=== PATIENT | male | born 1945 | race Hispanic/Latino ===

== ENCOUNTER → 2021-11-03 | Outpatient (CLI) | payer OTHER ==
[2021-11-03 08:24] LABS: INR 0.94 (0.85-1.15); PROTHROMBIN TIME 10.3 SEC (9.6-11.6)
[2021-11-03 08:25] LABS: PARTIAL THROMBOPLASTIN TIME 26.5 SEC (26.3-35.5)
== END | disposition home or self-care (01) ==
LOC: RAH 07:41
PROVIDERS: ATTEND Physician Assistant
DX: D11.0 Benign neoplasm of parotid gland (principal); K21.9 Gastro-esophageal reflux disease without esophagitis; E78.5 Hyperlipidemia, unspecified; M15.0 Primary generalized (osteo)arthritis; E11.42 Type 2 diabetes mellitus with diabetic polyneuropathy; Z86.010 Personal history of colon polyps; Z79.01 Long term (current) use of anticoagulants
CPT/HCPCS: 42400; 85610; 85730; 36415; 76942; C1887; 38505; 88305

== ENCOUNTER 2025-02-17 06:25 | Day surgery (SDC) | payer OTHER ==
[2025-02-14 08:29] LABS: IMMATURE GRANULOCYTE ABSOLUTE 0.02 K/uL (0-1); NUCLEATED RED BLOOD CELLS 0.0 % (0.0-0.19); PLATELET COUNT (AUTO) 143 K/uL (130-400); RED BLOOD CELL COUNT(AUTO) 4.70 MIL/uL (4.50-6.20); RED CELL DISTRIBUTION WIDTH 13.5 % (11.0-15.5); WHITE BLOOD COUNT (AUTO) 6.2 K/uL (4.8-10.8)
[2025-02-14 08:40] LABS: INR 1.05 (0.85-1.15)
[2025-02-14 08:43] LABS: CREATININE 1.0 mg/dL (0.5-1.3); GLOMERULAR FILTR. RATE CALC 77.0 mL/min (>90); GLUCOSE,RANDOM 97.0 mg/dL (70-105); SODIUM SERUM 141.0 mmol/L (136-145); UREA NITROGEN, BLOOD 15.0 mg/dL (7-18)
[2025-02-14 08:48] VITALS: BP 130/65; PULSE 49; RESP 14; TEMP 97.2
--- NOTE | 2025-02-14 09:10 | EKG ---
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
--- NOTE | 2025-02-14 10:19 | NUR ---
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 ok to proceed
[2025-02-17] VITALS (16 sets, daily range): BP systolic 119–154; BP diastolic 65–75; PULSE 57–78; RESP 14–18; TEMP 97.1–97.6
[~2025-02-17] VITALS: Ht 162.6 cm; Wt 88.3 kg
[~2025-02-17 06:25] MED LIST: ATOR40TA71 PO; BUSP10TA3 PO; FINA5TAB41 PO; GABA300C PO; OMEP40CA21 PO; TAMS-55 PO
[2025-02-17] MEDS ORDERED: SUGAMMADEX SODIUM 200 MG/2 ML VIAL IV ONE (07:08)
[2025-02-17] MEDS ORDERED: LIDOCAINE PF 100MG/5ML (2%) SYRINGE 5ML ONE (07:20)
[2025-02-17] MEDS ORDERED: MIDAZOLAM HCL 1 MG/ML 2ML VIAL ONE (07:21)
[2025-02-17] MEDS: LACTATED RINGERS 1000ML 1,000 ML IV ONE (08:16)
[2025-02-17] MEDS ORDERED: GLYCOPYRROLATE 0.2 MG/ML 5 ML VIAL ONE (08:46)
--- NOTE | 2025-02-17 09:26 | OP ---
Operative Note: DATE OF PROCEDURE: 02/17/25 SURGEON: MICHAEL BRYAN MD TISSUE COORDINATOR: [] ANESTHESIA: [] General ANESTHESIOLOGIST/SUPERVISOR CORE DRILLING: [] PREOPERATIVE DIAGNOSIS: [] Umbilical hernia POSTOPERATIVE DIAGNOSIS: [] The same SYNOPSIS: [] PROCEDURE: [] Open umbilical hernia repair ESTIMATED BLOOD LOSS: [] Minimal INDICATIONS: [] DESCRIPTION OF PROCEDURE: [] With the patient prepped and draped with a an infraumbilical incision using indirect technique I was able to identify an incarcerated umbilical hernia. I cleaned the area of the fashion I removed the hernia sac with the content. After cleaning the defect it was a 2 cm defect and I decided to repair with the primary repair no mesh. Using a 2-0 Prolene sutures I did interrupted sutures. After this was done I reimplanted the umbilicus to the fascia with a 2-0 Vicryl. 3-0 Vicryl were used for subcutaneous tissue and 4-0 Monocryl and Dermabond were placed with the skin. We injected 20 cc of local anesthesia. MICHAEL BRYAN MD Feb 17, 2025 09:26
--- NOTE | 2025-02-17 10:55 | NUR ---
Full and complete discharge instructions given to Patient and Family both verbally and in writing. Explained Surgical procedure precautions and follow up. Umbilical hernia incision sites clean dry and intact. Abdominal binder in place. No evidence of bleeding, bruising or hematoma. All questions answered. PIV removed with catheter tip intact. Family at bedside appearing supportive. W/C to POV with Family to home
== END 2025-02-17 11:09 | disposition home or self-care (01) ==
LOC: DAH 06:25
PROVIDERS: ATTEND Surgery
DX: K42.9 Umbilical hernia without obstruction or gangrene (principal); F41.9 Anxiety disorder, unspecified; E78.5 Hyperlipidemia, unspecified; G47.30 Sleep apnea, unspecified; E11.9 Type 2 diabetes mellitus without complications; Z79.01 Long term (current) use of anticoagulants; Z82.49 Family history of ischemic heart disease and other diseases of the circulatory system; Z79.899 Other long term (current) drug therapy; Z98.890 Other specified postprocedural states
CPT/HCPCS: 80048; 85025; 85610; 85730; 36415; 93005; 49592; 82948; 88302; J1100; A4223 ×2; A6260; A4663; J7120; J3010 ×2; J3490 ×4; J2003; J2250; J2704; J2405; J0665; J2795; J2371; J0690; A4930; A4215; A4213; A4222; A4221; A4216; A4450